=== PATIENT | female | born 1995 | race African-American/Black ===

== ENCOUNTER 2016-03-26 10:50 | Emergency (ER) | payer OTHER, MEDICAID ==
[2016-03-26] MEDS ORDERED: IBUPROFEN 600 MG TABLET PO ONE (10:57)
[2016-03-26] MEDS ORDERED: DIPH/PERTUSS(ACELL)/TETANUS VAC/PF 0.5 ML SYR (>=10YO) IM ONE (10:58)
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
[2016-03-26 12:59] VITALS: BP 122/72
== END 2016-03-26 12:57 | disposition home or self-care (01) ==
LOC: ER 10:50
PROC: 2W3CX1Z Immobilization of Right Lower Arm using Splint (ICD-10-PCS; principal; 2016-03-26)
DX: S60.221A Contusion of right hand, initial encounter (principal); S61.234A Puncture wound without foreign body of right ring finger without damage to nail, initial encounter; M79.641 Pain in right hand; V43.52XA Car driver injured in collision with other type car in traffic accident, initial encounter; F17.210 Nicotine dependence, cigarettes, uncomplicated; Z23 Encounter for immunization
CPT/HCPCS: 99283; 90471; 73630; 73130; 90715; 29126; L3984